=== PATIENT | male | born 1940 | race Caucasian/White ===

== ENCOUNTER 2017-10-22 16:02 | Observation (INO) | payer MEDICARE, OTHER ==
[~2017-10-22] VITALS: Ht 180.3 cm; Wt 79.6 kg
[2017-10-22 16:34] LABS: BASOPHILS % (AUTO) 0.5 % (0.0-5.0); EOSINOPHILS % (AUTO) 0.1 % (0.0-8.0); HEMATOCRIT 43.8 % (42-54); LYMPHOCYTES % (AUTO) 7.2 % (21.0-51.0); MEAN CORPUSCULAR HEMOGLOBIN 32.5 pg (27.0-33.0); MEAN CORPUSCULAR HGB CONC 34.7 g/dL (32.0-36.0); MEAN CORPUSCULAR VOLUME 93.9 fL (79-99); MONOCYTES % (AUTO) 11.8 % (3.0-13.0); NEUTROPHILS % (AUTO) 80.4 % (40.0-77.0); PLATELET COUNT (AUTO) 163 K/uL (130-400); RED BLOOD CELL COUNT(AUTO) 4.66 MIL/uL (4.50-6.20); RED CELL DISTRIBUTION WIDTH 12.4 % (11.0-15.5); WHITE BLOOD COUNT (AUTO) 7.1 K/uL (4.8-10.8)
[2017-10-22 16:48] LABS: CREATININE 1.1 mg/dL (0.5-1.5); POTASSIUM 3.8 mmol/L (3.5-5.1)
[2017-10-22 16:55] LABS: APPEARANCE,URINE Clear (CLEAR); BILIRUBIN,URINE Negative (NEGATIVE); COLOR,URINE Yellow (YELLOW); GLUCOSE, URINE (UA) Negative (NEGATIVE); KETONES,URINE 40 mg/dL (NEGATIVE); LEUKOCYTE ESTERASE ,URINE Negative (NEGATIVE); NITRATE,URINE Negative (NEGATIVE); OCCULT BLOOD,URINE Moderate (NEGATIVE); PH,URINE 5.5 (5.0-8.0); PROTEIN,URINE POS 1+ (NEGATIVE)
[2017-10-22 17:00] LABS: B-TYPE NATRIURETIC PEPTIDE 97 pg/mL (0-100)
[2017-10-22 17:02] LABS: ALBUMIN 3.7 g/dL (3.5-5.0); CREATINE KINASE MB 0.7 ng/mL (0.5-3.6); TOTAL PROTEIN, SERUM 7.2 g/dL (6.0-8.3)
[2017-10-22 17:06] LABS: BACTERIA,URINE Rare /HPF (None Seen); MUCUS,URINE Moderate LPF (None Seen); SQUAMOUS EPITHELIAL CELL,UR Rare /LPF (0-2); WBC,URINE 0-1 /HPF (0-1)
[2017-10-22 17:07] LABS: HYALINE CASTS, URINE 0-1 /LPF (0-1 /LPF)
[2017-10-22] MEDS ORDERED: SODIUM CHLORIDE 0.9% 1000ML 1,000 ML IV ONE (17:21)
[2017-10-22] MEDS ORDERED: CEFTRIAXONE SODIUM 1 GM ONE (17:30)
[2017-10-22] MEDS ORDERED: AZITHROMYCIN 250 MG TABLET PO ONE (17:31)
[2017-10-22] MEDS ORDERED: ACETAMINOPHEN EXTRA STRENGTH 500 MG TABLET ONE (17:31)
[2017-10-22] MEDS ORDERED: OSELTAMIVIR PHOSPHATE 75 MG CAP ONE (17:52)
[2017-10-22] MEDS: SODIUM CHLORIDE 0.9% 1000ML 1,000 ML IV SCH (18:44)
[2017-10-22] MEDS ORDERED: CEFTRIAXONE 1GM/D5W 50ML 50 ML IV SCH (18:45)
[2017-10-22] MEDS ORDERED: LACTULOSE 20 GM/30 ML UDCUP PO PRN (18:45)
[2017-10-22] MEDS ORDERED: HYDRALAZINE HCL 20 MG/ML VIAL IV PRN (18:45)
[2017-10-22] MEDS ORDERED: GUAIFENESIN-DM 200/20 MG 10 ML PO PRN (18:45)
[2017-10-22] MEDS ORDERED: MAG HYDROX/AL HYDROX/SIMETH ES 30 ML SUSP UDCUP PO PRN (18:45)
[2017-10-22] MEDS ORDERED: AZITHROMYCIN 500MG+NS 250ML 250 ML IV SCH (18:45)
[2017-10-22] MEDS ORDERED: MORPHINE SULFATE 2 MG/ML 1ML SYG IV PRN (18:45)
[2017-10-22] MEDS ORDERED: NITROGLYCERIN 0.4 MG SL TAB SL PRN (18:45)
[2017-10-22] MEDS ORDERED: ACETAMINOPHEN-CODEINE 300/30MG TAB PO PRN (18:45)
[2017-10-22] MEDS ORDERED: ONDANSETRON HCL 4 MG/2 ML VIAL IV PRN (18:45)
[2017-10-22] MEDS ORDERED: ACETAMINOPHEN 325 MG TAB PO PRN (18:45)
[2017-10-22] MEDS ORDERED: ZOLPIDEM TARTRATE 5 MG TAB PO PRN (18:45)
[2017-10-22] MEDS: FAMOTIDINE 20MG TAB 20 MG TAB PO SCH (21:00)
[2017-10-22] MEDS: OSELTAMIVIR PHOSPHATE 75 MG CAP PO SCH (21:00)
[2017-10-22] MEDS: BENZONATATE 100 MG CAPSULE PO SCH (21:00)
[2017-10-22] MEDS: IPRATROPIUM/ALBUTEROL SULFATE 3 ML SOLUTION IH SCH (22:00)
[2017-10-23] MEDS ORDERED: SODIUM CHLORIDE 0.9% 1000ML 1,000 ML IV ONE (00:33)
[2017-10-23] MEDS ORDERED: BENZONATATE 100 MG CAPSULE PO ONE ×2 (00:34→08:04)
[2017-10-23] MEDS ORDERED: FAMOTIDINE 20MG TAB 20 MG TAB ONE (00:34)
[2017-10-23] MEDS ORDERED: IPRATROPIUM/ALBUTEROL SULFATE 3 ML SOLUTION IH ONE ×3 (01:14→11:47)
[2017-10-23] MEDS: IPRATROPIUM/ALBUTEROL SULFATE 3 ML SOLUTION IH SCH ×6 (02:00→22:19)
[2017-10-23] MEDS: SODIUM CHLORIDE 0.9% 1000ML 1,000 ML IV SCH ×2 (04:44→17:49)
[2017-10-23] MEDS ORDERED: OSELTAMIVIR PHOSPHATE 75 MG CAP ONE (08:05)
[2017-10-23] MEDS ORDERED: ENOXAPARIN SODIUM 40 MG/0.4 ML SYRINGE SQ ONE (08:05)
[2017-10-23] MEDS ORDERED: ENOXAPARIN SODIUM 40 MG/0.4 ML SYRINGE SQ SCH (09:00)
[2017-10-23] MEDS: OSELTAMIVIR PHOSPHATE 75 MG CAP PO SCH ×2 (09:00→20:41)
[2017-10-23] MEDS: BENZONATATE 100 MG CAPSULE PO SCH ×3 (09:00→20:41)
[2017-10-23] MEDS: FAMOTIDINE 20MG TAB 20 MG TAB PO SCH ×2 (09:00→20:41)
[2017-10-23] MEDS ORDERED: ACETAMINOPHEN 325 MG TAB ONE (09:44)
[2017-10-23 14:02] VITALS: BP 145/74
[2017-10-23] MEDS ORDERED: PHARMACY COMMUNICATION MISC SCH (14:15)
[2017-10-23] MEDS ORDERED: ROSU10TA35 PO (14:52)
[2017-10-23] MEDS ORDERED: UBID100C45 PO (14:52)
[2017-10-23] MEDS ORDERED: LISI-613 PO (14:52)
[2017-10-23] MEDS ORDERED: NIAC500T22 PO (14:52)
[2017-10-23] MEDS ORDERED: TAMS0.4C32 PO (14:52)
[2017-10-23] MEDS ORDERED: RANI150T7 PO (14:52)
[2017-10-23] MEDS ORDERED: AMLO2.5T PO (14:52)
[2017-10-23] MEDS ORDERED: ASPI-1197 PO (14:52)
[2017-10-23] MEDS ORDERED: ACET325T51 PO (14:52)
[2017-10-23] MEDS ORDERED: CEFTRIAXONE SODIUM 1 GM IVP SCH (17:00)
[2017-10-23] MEDS ORDERED: AZITHROMYCIN 500 MG IV SCH (17:30)
[2017-10-23] MEDS ORDERED: [UNRECOGNIZED DRUG - OTHER] IV SCH (17:30)
[2017-10-23 18:21] LABS: ALBUMIN 2.9 g/dL (3.5-5.0); BILIRUBIN,TOTAL 0.5 mg/dL (0.2-1.0); POTASSIUM 3.8 mmol/L (3.5-5.1)
[2017-10-23 19:00] VITALS: BP 135/70
[2017-10-24] VITALS: BP 152/74
[2017-10-24] MEDS: IPRATROPIUM/ALBUTEROL SULFATE 3 ML SOLUTION IH SCH ×4 (02:14→13:28)
[2017-10-24 04:00] VITALS: BP 149/81
[2017-10-24] MEDS: SODIUM CHLORIDE 0.9% 1000ML 1,000 ML IV SCH (06:27)
[2017-10-24 08:00] VITALS: BP 139/74
[2017-10-24 11:44] VITALS: BP 141/65
[2017-10-24] MEDS ORDERED: BENZ-39 PO (15:32)
[2017-10-24] MEDS ORDERED: OSEL75 PO (15:32)
[2017-10-24] MEDS ORDERED: CEFD300C3 PO (15:32)
[2017-10-24 15:49] VITALS: BP 147/74
== END 2017-10-24 16:45 | disposition home or self-care (01) ==
LOC: EDH 16:02 → EDHIP 18:44 → INTOOBSV 18:44 → EDHIP 18:48 → UNDOADMIN 18:48 → EDHIP 10-23 13:46 → 3CH 10-23 13:46
PROVIDERS: ADMIT Family Medicine; ATTEND Family Medicine
DX: J40 Bronchitis, not specified as acute or chronic (principal); M62.82 Rhabdomyolysis; E87.1 Hypo-osmolality and hyponatremia; J11.1 Influenza due to unidentified influenza virus with other respiratory manifestations; I10 Essential (primary) hypertension; I25.10 Atherosclerotic heart disease of native coronary artery without angina pectoris; Z79.899 Other long term (current) drug therapy
CPT/HCPCS: 36415 ×2; 71045; 80053 ×2; 81001; 82550 ×2; 82553; 83605; 83880; 83930; 83935; 84443; 84484; 85025; 87040 ×2; 87804 ×2; 93005; 94640 ×9; 94664; 96361; 96365; 99285; A4218; G0378 ×46; J0456; J0696 ×3; J1650; J7030 ×2